=== PATIENT | female | born 1985 | race Caucasian/White ===

== ENCOUNTER 2017-01-09 10:41 | Emergency (ER) | payer OTHER ==
[2017-01-09 11:22] VITALS: BP 133/90
--- NOTE | 2017-01-09 12:17 | RAD ---
HISTORY: Remote injury, persistent pain, right foot and ankle COMPARISONS: None VIEWS: 5, Frontal and lateral views of the right foot with frontal, lateral, and oblique views of the right ankle FINDINGS: BONE DENSITY: Normal. BONES: There is no displaced fracture. JOINTS: There is no arthropathy. ALIGNMENT: There is no dislocation. SOFT TISSUES: Unremarkable. OTHER FINDINGS: None. IMPRESSION: NO ACUTE OSSEOUS INJURY TO THE RIGHT FOOT AND RIGHT ANKLE. IF SYMPTOMS PERSIST, RECOMMEND REPEAT IMAGING.
--- NOTE | 2017-01-09 13:29 | UC ---
Lower Extremity/Ankle HPI - HPI Summary HPI Summary: AT AGE 13YRS HAD RIGHT ANKLE INJURY, REINJURED ANKLE LAST OCTOBER TWISTED IT IN SNOW. HAS HAD CONTINUED PAIN IN ANKLE AND FOOT, AND IS CONCERNED ABOUT REMOTE INJURY NOT HEALING. ALSO IS TRYING TO GET WOULD LIKE TEST BEFORE XRAY. - History of Current Complaint Chief Complaint: UCLowerExtremity Stated Complaint: RIGHT ANKLE PAIN Time Seen by Provider: 01/09/17 11:18 Hx Obtained From: Patient Hx Last Menstrual Period: 12/12/16 ?: No Onset/Duration: Gradual Onset, Lasting Weeks - LASTING MONTHS, Still Present Severity Initially: Mild Severity Currently: Mild Pain Intensity: 0 Pain Scale Used: 0-10 Numeric Aggravating Factor(s): Standing, Ambulation Alleviating Factor(s): Rest, Elevation Able to Bear Weight: Yes - Risk Factors Gout Risk Factors: Negative DVT Risk Factors: Negative Septic Arthritis Risk Factor: Negative - Allergies/Home Medications Allergies/Adverse Reactions: Allergies Allergy/AdvReac Type Severity Reaction Status Date / Time No Known Allergies Allergy Verified 01/09/17 11:22 Home Medications: Home Medications NK [No Home Medications Reported] 01/09/17 [History Confirmed 01/09/17] PMH/Surg Hx/FS Hx/Imm Hx Previously Healthy: Yes Cardiovascular History Of: Reports: Cardiac Disorders - A-fib - Surgical History Surgical History: Yes Surgery Procedure, Year, and Place: [place] - Family History Known Family History: Negative: Other - NO JOINT LAXITY OR CONNECTIVE TISSUE DISORDERS - Social History Occupation: Employed Full-time Lives: With Family Alcohol Use: Occasionally Substance Use Type: None Smoking Status (MU): Never Smoked Tobacco Review of Systems Constitutional: Negative Skin: Negative Eyes: Negative ENT: Negative Respiratory: Negative Cardiovascular: Negative Gastrointestinal: Negative Genitourinary: Negative Motor: Negative Neurovascular: Negative Musculoskeletal: Arthralgia, Myalgia Neurological: Negative Psychological: Negative All Other Systems Reviewed And Are Negative: Yes Physical Exam Triage Information Reviewed: Yes Appearance: Well-Appearing, No Pain Distress, Well-Nourished Vital Signs: Initial Vital Signs Temp 98.2 F 01/09/17 11:14 Pulse 82 01/09/17 11:14 Resp 16 01/09/17 11:14 BP 133/90 01/09/17 11:14 Pulse Ox 99 01/09/17 11:14 Vital Signs Reviewed: Yes Eye Exam: Normal ENT Exam: Normal ENT: Positive: Normal ENT inspection, Hearing grossly normal, Pharynx normal, TMs normal Dental Exam: Normal Neck exam: Normal Neck: Positive: Supple, Nontender, No Lymphadenopathy Respiratory Exam: Normal Respiratory: Positive: Chest non-tender, Lungs clear, Normal breath sounds, No respiratory distress, No accessory muscle use Cardiovascular Exam: Normal Cardiovascular: Positive: RRR, No Murmur, Pulses Normal Abdominal Exam: Normal Musculoskeletal Exam: Normal Musculoskeletal: Positive: Strength Intact, ROM Intact, No Edema Neurological Exam: Normal Psychological Exam: Normal Psychological: Positive: Normal Response To Family Skin Exam: Normal Lower Extremity Course/Dx - Differential Dx/Diagnosis Differential Diagnosis/HQI/PQRI: Fracture (Closed), Sprain, Strain Provider Diagnoses: RIGHT ANKLE SPRAIN/ARTHRALGIA Discharge - Discharge Plan Condition: Stable Disposition: HOME Patient Education Materials: Ankle Sprain (ED), Foot Sprain (ED), Arthralgia ( ED) Referrals: [facility] [place] PHYSICIAN REFERRAL [Outside] Alexander Swan MD [Medical Doctor] - No Primary Care Phys,NOPCP [Primary Care Provider] - Additional Instructions: PHYSICAL THERAPY REFERRAL: You have been prescribed physical therapy. Treatments may include stretching, exercise, application of heat or cold, and other modalities. After an injury, PT can reduce swelling and pain. In recovery, PT is used to restore mobility and strength. Your specific treatment goals are: ___X__ Reduction of Swelling (EGS, US, ice as needed) ____X_ Pain Reduction (EGS, US, ice as needed) ___X__ TENS Pack Fitting and Instruction Wound Hydrotherapy ___X__ Preservation of Mobility ___X__ Roman Catholic of Mobility ___X__ Strength Roman Catholic ____X_ Work or Sports Hardening This instruction sheet also serves as your PHYSICAL THERAPY REFERRAL! Please take it with you to the therapist, so he/she will be aware of your diagnosis and treatment plan. You may see the physical therapist of your choice for these treatments, but may wish to check with your insurance to be sure the provider you select is covered. It's important to see the doctor to whom you have been referred for follow up.
== END 2017-01-09 12:52 | disposition home or self-care (01) ==
LOC: UCCORT 10:41
DX: S93.401A Sprain of unspecified ligament of right ankle, initial encounter (principal); X50.1XXA Overexertion from prolonged static or awkward postures, initial encounter; Y93.9 Activity, unspecified; Y92.9 Unspecified place or not applicable; Z32.02 Encounter for pregnancy test, result negative; I48.91 Unspecified atrial fibrillation
CPT/HCPCS: 84702; 99201; G0463